=== PATIENT | female | born 1990 | race Caucasian/White ===

== ENCOUNTER 2018-04-30 01:35 | Inpatient (IN) ==
[2018-04-30] MEDS ORDERED: *HR* Morphine Soln 10 MG/5 ML UDC PO PRN (02:23)
[2018-04-30] MEDS ORDERED: Acetaminophen 325 MG TABLET PO PRN (02:26)
[2018-04-30] MEDS ORDERED: *HR* LORazepam Oral Conc 2 MG/ML SL SCH (04:00)
[2018-04-30] MEDS ORDERED: Acetaminophen 650 MG RECTAL SUPP RC SCH (04:00)
[2018-04-30] MEDS ORDERED: Acetaminophen 650 MG RECTAL SUPP RC PRN (06:23)
[2018-04-30] MEDS: MORPHINE SUL Oral CONC 10 MG/0.5 ML ORAL.SYG PO PRN ×4 (11:32→23:38)
[2018-04-30] MEDS: *HR* LORazepam Oral Conc 2 MG/ML SL PRN ×2 (12:42→20:28)
--- NOTE | 2018-04-30 15:24 | Internal Med History&Physical ---
Date of Encounter: 04/30/18 Time of Encounter: 14:50 Assessment and Plan (1) Severe protein-calorie malnutrition Current visit: No Status: Chronic She has declined SNF placement for TPN and has elected to go on hospice. She is marginally tolerating minimal amount of oral intake. (2) Gastroparesis Current visit: No Status: Chronic Etiology uncertain. Internal Medicine - H&P: HPI Chief complaint: Uncontrolled pain, weakness Admitted From: Direct Admit Plans for Post Hospital Care: Home History of present illness: Ms. Zheng is a 28 year old female who was admitted to hospice services following discharge from [facility] after a 02/21/2018-04/03/2018 stay following admission for failure to thrive. She had aggressive workup including 10 CTs of abdomen, pelvis, and/or chest. She was seen by multiple specialists. She refused transfer to tertiary care center or rehabilitation. She has had severe gastroparesis since 2014 with workup at [facility] failing to provide in etiology. She has had a G-tube that is only used as a drainage vent. She had an ileostomy placed because of severe constipation. A J-tube was placed but she has not been nonfunctional. She developed inadequate pain control at home and was admitted to [facility] for [facility] hospice care. Past Med Surg Social Fam HX - Past Medical History Medical history: DVT, GERD, renal disease, SVT, other Additional medical history: GASTROPARESIS. NUTRITIONAL MARASIMUS. ILEOSTOMY, PEGTUBE, J TUBE, CENTRAL LINE Psychiatric history: anxiety, depression, previous psychiatric hospitalization - Past Surgical History Surgical History: other Additional surgical history: ileostomy. jejunostomy. G-tube - Social History Smoking Status: Never smoker Smokeless Tobacco Status: No Alcohol use: none Drug use: none - Family History Mother Living Status: Cause of : COLON CANCER Hx Family Cancer: Yes Internal Medicine - H&P: Meds Hyoscyamine SL [Levsin Sl] 0.125 mg SL QID PRN 08/31/17 [History] Scopolamine Patch [Transderm-Scop] 1.5 mg TD Q72H 08/31/17 [History] Selegiline [Emsam] 6 mg TD DAILY 02/21/18 [History] clonazePAM [Clonazepam] 0.5 mg SL DAILY PRN 02/21/18 [History] Fondaparinux [Arixtra] 5 mg SQ 0600 #30 syringe 04/03/18 [Rx] OXYCODONE Oral CONC [Oxycodone Oral Conc] 20 mg SL Q2H PRN 5 Days #10 ml [Rx] Vancomycin/0.9 % Sod Chloride [Vanco 1 Gram/150 ml-0.9% NaCl] 1 gm IV DAILY #20 plast..bag 04/03/18 [Rx] 3 Allergy/AdvReac Type Severity Reaction Status Date / Time clarithromycin [From Biaxin] Allergy See Verified 08/30/17 20:19 Comments codeine Allergy See Verified 08/30/17 20:19 Comments domperidone Allergy See Verified 08/30/17 20:19 Comments Erythromycin Base Allergy See Verified 08/30/17 20:19 Comments metoclopramide [From Reglan] Allergy See Verified 08/30/17 20:19 Comments olanzapine [From Zyprexa] Allergy See Verified 08/30/17 20:19 Comments prochlorperazine Allergy See Verified 08/30/17 20:19 [From Compazine] Comments vancomycin AdvReac See Verified 03/21/18 08:08 Comments All Systems PM: A 10-system review of systems was performed and is negative for pertinent findings except as documented above in the HPI. Review of systems: Gen.: Her weight has decreased from 48.1 kg on 04/02/2018 to a weight of 38.329 kg on admission now. 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 She has prolonged QT interval. There is no history of hypertension heart failure or [place]. Respiratory: She is a lifelong nonsmoker has no known chronic lung disease GI: She had "liver failure" in the past but recovered. There is no other disorders of liver gallbladder or exocrine pancreas. She has gastroparesis of uncertain etiology as per above : No history of hematuria dysuria or kidney stones Neurologic: No history of strokes or seizures Endocrine: There is no known diabetes thyroid disease or hyperlipidemia Hematology/oncology: She has anemia but no known internal malignancies Psychiatric: She has anxiety and depression but no other mental health issues [place] skeletal: She has no known arthritis gout or other bone joint or muscle disorders. - Constitutional Vitals: Temp Pulse Resp BP Pulse Ox 99.2 F 82 14 97/58 98 04/30/18 09:50 04/30/18 09:50 04/30/18 09:50 04/30/18 09:50 04/30/18 09:50 Exam: Gen.: She is a lean cachectic appearing female lying in bed who is in no acute distress HEENT: Head is atraumatic and normocephalic. Eyes: EOMI. There is no scleral icterus. Mouth: Mucosa is moist. Neck: Supple and nontender. There is no thyromegaly or adenopathy noted. Heart: Regular without murmurs gallops or ectopics Chest: She has a right subclavian area double-lumen catheter in place. Abdomen: She has a right lower quadrant ostomy bag with fecal material. She has a G-tube in place connected to a Castellano catheter bag with some bloody drainage. Extremities: There is no cyanosis edema or clubbing noted. Dorsalis pedis and posttibial pulses are trace to 1+ palpable bilaterally. Neurologic: Mental status: She is lethargic but awakens and answers an occasional question. She follows a few commands. Cranial nerves: Smile is symmetric. Forehead wrinkles bilaterally. Tongue protrudes midline. EOMI. Motor: She moves her arms and legs well without further formal neurologic testing done. Skin: Warm and dry
[2018-04-30] MEDS: *HR* Promethazine 25 MG/ML VIAL IVP PRN ×2 (16:14→23:38)
[2018-05-01] MEDS: *HR* LORazepam Oral Conc 2 MG/ML SL PRN ×2 (02:29→08:13)
[2018-05-01] MEDS: MORPHINE SUL Oral CONC 10 MG/0.5 ML ORAL.SYG PO PRN ×4 (02:29→12:03)
[2018-05-01 08:12] VITALS: BP 108/72
--- NOTE | 2018-05-01 12:56 | Discharge Summary ---
Date of Encounter: 05/01/18 Time of Encounter: 12:45 - Discharge Diagnosis (1) Severe protein-calorie malnutrition Priority: Primary Status: Chronic (2) Gastroparesis Priority: Secondary Status: Chronic Hospital course: Ms. Zheng is a 28 year old female who was admitted to hospice services following discharge from [facility] after a 02/21/2018-04/03/2018 stay following admission for failure to thrive. She had aggressive workup including 10 CTs of abdomen, pelvis, and/or chest. She was seen by multiple specialists. She refused transfer to tertiary care center or rehabilitation. She has had severe gastroparesis since 2014 with workup at [facility] failing to provide in etiology. She has had a G-tube that is only used as a drainage vent. She had an ileostomy placed because of severe constipation. A J-tube was placed but she has not been nonfunctional. She developed inadequate pain control at home and was admitted to [facility] for [facility] hospice care. She was admitted to [facility]. I saw her on April 30 and performed a history and physical. Home medications were continued. I had a long discussion with her, hospital social insurance administrator, hospice nurse, and significant other friend in the room on May 01. I explained I felt the central line should be discontinued since she spiked fever 101. She has declined SNF placement for TPN. She has gastroparesis with extensive workup showing no etiology. I told her I felt she could be discharged home and have pain management medications ordered by her hospice physician. - Time Spent with Patient Total time spent providing and/or coordinating discharge services: - Discharge Medications Home Medications: Hyoscyamine SL [Levsin Sl] 0.125 mg SL QID PRN 08/31/17 [History] Scopolamine Patch [Transderm-Scop] 1.5 mg TD Q72H 08/31/17 [History] Selegiline [Emsam] 6 mg TD DAILY 02/21/18 [History] clonazePAM [Clonazepam] 0.5 mg SL DAILY PRN 02/21/18 [History] Fondaparinux [Arixtra] 5 mg SQ 0600 #30 syringe 04/03/18 [Rx] OXYCODONE Oral CONC [Oxycodone Oral Conc] 20 mg SL Q2H PRN 5 Days #10 ml [Rx] Allergies/Adverse Reactions: 3 Allergy/AdvReac Type Severity Reaction Status Date / Time clarithromycin [From axin] Allergy See Verified 08/30/17 20:19 Comments codeine Allergy See Verified 08/30/17 20:19 Comments domperidone Allergy See Verified 08/30/17 20:19 Comments Erythromycin Base Allergy See Verified 08/30/17 20:19 Comments metoclopramide [From Reglan] Allergy See Verified 08/30/17 20:19 Comments olanzapine [From Zyprexa] Allergy See Verified 08/30/17 20:19 Comments prochlorperazine Allergy See Verified 08/30/17 20:19 [From Compazine] Comments vancomycin AdvReac See Verified 03/21/18 08:08 Comments Date of admission: 04/30/18 01:36 Primary care physician: Federico Martin - Constitutional Vitals: Temp Pulse Resp BP Pulse Ox 99.7 F H 103 16 108/72 96 05/01/18 08:10 05/01/18 08:10 05/01/18 08:10 05/01/18 08:10 05/01/18 08:10 - Patient Status Disposition: Hospice - Home - Discharge Instructions Follow Up With: Federico Martin [Primary Care Provider] - 1 week
--- NOTE | 2018-05-01 14:41 | Physician Discharge Referral ---
Home Health/Hosp Referral Info Transfer to: Hospice Provider in Charge Post Discharge: PCP - Diagnosis (1) Severe protein-calorie malnutrition Priority: Primary Status: Chronic (2) Gastroparesis Priority: Secondary Status: Chronic - Respiratory Orders Smoking Cessation: Smoking cessation has been advised. For more information, call the [place] Tobacco Quit Line at 4-399-UQQX-NOW. - Activity Activity Orders: Ambulate - Services Needed Following services are medically necessary services: Nursing, Home Health Aide, Physical Therapy, Occupational Therapy - Transfer Medications Home Medications: Hyoscyamine SL [Levsin Sl] 0.125 mg SL QID PRN 08/31/17 [History] Scopolamine Patch [Transderm-Scop] 1.5 mg TD Q72H 08/31/17 [History] Selegiline [Emsam] 6 mg TD DAILY 02/21/18 [History] clonazePAM [Clonazepam] 0.5 mg SL DAILY PRN 02/21/18 [History] Fondaparinux [Arixtra] 5 mg SQ 0600 #30 syringe 04/03/18 [Rx] OXYCODONE Oral CONC [Oxycodone Oral Conc] 20 mg SL Q2H PRN 5 Days #10 ml [Rx] Allergies/Adverse Reactions: 3 Allergy/AdvReac Type Severity Reaction Status Date / Time clarithromycin [From Biaxin] Allergy See Verified 08/30/17 20:19 Comments codeine Allergy See Verified 08/30/17 20:19 Comments domperidone Allergy See Verified 08/30/17 20:19 Comments Erythromycin Base Allergy See Verified 08/30/17 20:19 Comments metoclopramide [From Reglan] Allergy See Verified 08/30/17 20:19 Comments olanzapine [From Zyprexa] Allergy See Verified 08/30/17 20:19 Comments prochlorperazine Allergy See Verified 08/30/17 20:19 [From Compazine] Comments vancomycin AdvReac See Verified 03/21/18 08:08 Comments Certification: Further, I certify that my clinical findings support that this patient is homebound (i.e. absences from home require considerable and taxing effort and are for medical reasons or gnosticist services or infrequently or short duration when for other reasons) because: Homebound Reason: Leaving home requires considerable and taxing effort due to condition (Cachexia, weakness) Attestation: My signature below is to certify that this patient is under my care and that I, or nurse practitioner, or a physician's occupational therapist assistant working with me, has a face-to -face encounter with this patient.
== END 2018-05-01 14:22 | disposition hospice, home (50) | DRG 641 ==
LOC: INPPIK 01:36
PROVIDERS: ADMIT Internal Medicine; ATTEND Internal Medicine